=== PATIENT | male | born 1970 | race Caucasian/White ===

== ENCOUNTER → 2023-05-13 06:20 | Day surgery (SDC) | payer OTHER, SELFPAY | LOC: GI 06:20 | PROVIDERS: ATTENDING PHYSICIAN Surgery | DX: Z12.11 Encounter for screening for malignant neoplasm of colon (principal); D12.0 Benign neoplasm of cecum; D12.5 Benign neoplasm of sigmoid colon; D12.8 Benign neoplasm of rectum | CPT/HCPCS: 45385; 45380; 88305 ==

== ENCOUNTER 2025-02-05 18:41 | Emergency (ER) | payer OTHER, SELFPAY ==
[2025-02-05 18:46] VITALS: BP 152/94
[2025-02-05 19:11] VITALS: BP 122/87
[2025-02-05 19:16] VITALS: BMI 35.1
--- NOTE | 2025-02-05 19:29 | ED.GENMED ---
History of Present Illness
General
Chief Complaint: Cardiac Symptoms
Source: patient
Exam Limitations: none
Time Seen by Provider: 02/05/25 19:05
History of Present Illness
History of Present Illness:
54-year-old female otherwise healthy presents complaining of onset of shortness of breath lightheadedness and some chest discomfort after using a treadmill. States he lifted weights for 40 minutes and walk on the treadmill for 40 minutes then
started feeling lightheaded and became short of breath. No recent travel or surgery. Symptoms progressed with time but then resolved. He has no complaints currently. No calf pain or leg swelling. No family history of cardiac disease. He
occasionally takes preworkout medication which he did this evening. Workout at the medication takes its nothing different what usually does. No other complaints at this time
Past History
Past History
ED Past Medical History: None
ED Past Surgical History: Orthopedic
Social History
Tobacco: Non-smoker
Alcohol: Occasional
Drug: None
Personal:
Living: with family
Employment: Not employed
Family History
Family History: Other (Noncontributory); Negative Early CAD or CAD
Phy Exam
Physical Exam
Physical Exam:
General: Well-appearing male no acute respiratory distress
HEENT: Normal cephalic atraumatic
Heart: Regular rate and rhythm lungs: Clear no wheeze
Abdomen is soft nontender
Extremities: No cyanosis or edema or calf tenderness
Course
Orders/Labs/Results
Orders:
Orders
02/05/25 18:42
ECG [Electrocardiogram (*1)] Urgent
Reason for Study: Chest Pain
02/05/25 18:43
EKG- Treatment ONCE
02/05/25 19:24
CR Chest - 2 Views Urgent
Comment:
Reason For Exam: chest pain, sob
02/05/25 19:30
Complete Blood Count/With Diff Urgent
Comprehensive Metabolic Panel Urgent
Troponin I Urgent
02/05/25 21:36
Troponin I Urgent
Abnormal Lab Results
02/05/25
19:30
RBC 4.68 L 10^6/uL
(4.70-6.10)
MCH 31.6 H pg
(27.0-31.0)
Absolute Monos (auto) 0.7 H 10^3/uL
(0.1-0.6)
Monocytes % 10.9 H %
(1.7-9.3)
Sodium 132 L mmol/L
(135-145)
02/05/25 19:30
02/05/25 19:30
Vital Signs
Initial and Last Documented VS:
Initial Vital Signs
Temp Pulse Resp BP Pulse Ox
98.1 F 87 16 152/94 98
02/05/25 18:46 02/05/25 18:46 02/05/25 18:46 02/05/25 18:46 02/05/25 18:46
Last Documented Vital Signs
Temp Pulse Resp BP Pulse Ox
98.1 F 82 15 115/85 98
02/05/25 18:46 02/05/25 20:15 02/05/25 20:15 02/05/25 20:00 02/05/25 20:32
MDM/Problems Addressed
Differential Diagnosis Includes:
Shortness of breath chest discomfort and lightheadedness after working out today and all symptoms completely resolved. Consider deconditioning versus ibuprofen ACS. Given complete resolution of symptoms do not suspect PE. He has no risk factors
for this otherwise. Vital signs are stable. Will check labs x-ray troponin
*Pulse Oximetry
SaO2: 100
Oxygen Mode of Delivery: Room air
Patient hypoxic: no
*Critical Care Note
Total Time (30-74mins, 75-104mins- exclusive of procedures): Not Applicable
Update Note
Update Note:
Initial and repeat troponin both within normal limits. Patient has remained symptom-free since arrival chest x-ray clear. No concerning findings for imminent coronary syndrome but will refer to cardiology. Stable for discharge
ED Attending Note
-
Portions of this chart may have been created with voice recognition software.� Occasional wrong word or��sound alike� substitutions may have occurred due to the inherent limitations of voice recognition software.
Discharge Plan
Departure
Patient Disposition: Home (Routine Discharge)
Date of Disposition: 02/05/25
Time of Disposition: 22:16
Patient with high blood pressure during this ER visit?: No
Discharge Problem:
Chest pain
Instructions: Chest Pain CBC Follow Up
Prescriptions:
No Action
Hydroxycut
DAILY
[employer]
Patient Comments:
started today
potassium chloride [Micro-K] 10 MEQ capsule, extended release
10 meq PO TID Qty: 20 0RF
Referrals:
Nathan Avila MD [Family Provider, Family Practice]
Activity Restrictions/Additional Instructions:
Please return if worsening symptoms. Follow-up with cardiology otherwise
Interventions
Interventions:
*Risk Screen - Suicide Last Done: 02/05/25 18:46
*General Assessment Last Done: 02/05/25 18:46
*Neglect/Abuse Screening Last Done: 02/05/25 18:46
*ED COVID-19 Vaccine History Last Done: 02/05/25 19:18
*ED Influenza Vaccine History Last Done: 02/05/25 19:18
[facility] Risk Assessment Tool Last Done: 02/05/25 19:18
ED- Pulmonary Assessment Last Done: 02/05/25 19:18
ED- Cardiac Assessment Last Done: 02/05/25 19:18
Discharge Date and Time
Print Language: SPANISH
[2025-02-05 19:31] VITALS: BP 119/80
[2025-02-05 19:38] LABS: Hematocrit 42.0 % (39.0-52.0); Hemoglobin 14.8 g/dL (13.0-18.0); Mean Corp Hgb Conc. 35.2 g/dL (33.0-37.0); Mean Corpuscular Volume 89.7 fL (80.0-94.0); Nucleated Red Blood Cells % 0 % (-); Platelet Count 228 10^3/uL (130-400); Red Cell Dist. Width 12.7 % (11.5-14.5)
[2025-02-05 19:53] LABS: ALT (SGPT) 46 U/L (0-50); AST (SGOT) 51 U/L (17-59); Albumin 4.5 g/dl (3.5-5.0); Alkaline Phosphatase 45 U/L (38-126); Blood Urea Nitrogen 15 mg/dl (9-20); Calcium 9.4 mg/dl (8.4-10.2); Carbon Dioxide 23 mmol/L (22-30); Chloride 100 mmol/L (98-107); Estimated Creatinine Clearance 107 ml/min; Glucose 86 mg/dl (70-99); Potassium 3.7 mmol/L (3.5-5.1); Sodium 132 mmol/L (135-145); Total Protein 7.3 g/dl (6.3-8.2); eGFR > 60.00
[2025-02-05 20:00] VITALS: BP 115/85
[2025-02-05 20:03] LABS: Troponin I 0.013 ng/ml
[2025-02-05 22:12] LABS: Troponin I < 0.012 ng/ml
== END 2025-02-05 22:26 | disposition home or self-care (01) ==
LOC: EMR 18:41
PROVIDERS: Physician Assistant; EMERGENCY PHYSICIAN Emergency Medicine; FAMILY PHYSICIAN General Practice
DX: R07.9 Chest pain, unspecified (principal)
CPT/HCPCS: 99284; 71046; 80053; 84484; 85025; 93005